=== PATIENT | male | born 1985 | race Caucasian/White ===

== ENCOUNTER 2023-09-07 12:12 | Emergency (ER) | payer OTHER, SELFPAY ==
--- NOTE | ~2023-09-07 | XR_ITS ---
EXAMINATION: XR chest 1V CLINICAL INFORMATION: Reason for Exam cp COMPARISON: None TECHNIQUE: Single portable frontal view. Tubes and lines: None Lungs and pleura: Small very radiodense structure projecting over the left upper lobe probably calcified granuloma, calcified pleural plaque or artifact. Lungs otherwise are clear. Heart and mediastinum: The mediastinum is within normal limits.. Bones/soft tissue: Skeletal structures included are normal for patient's age. XR/XR chest 1V IMPRESSION: 1. No radiographic evidence of acute cardiopulmonary disease. 2. Small 4 mm very dense structure projecting over the left upper lobe probably calcified granuloma, calcified pleural plaque or artifact.
--- NOTE | 2023-09-07 12:18 | ECG_ITS ---
Test Reason : CP Blood Pressure : / mmHG Vent. Rate : 097 BPM Atrial Rate : 097 BPM P-R Int : 150 ms QRS Dur : 068 ms QT Int : 392 ms P-R-T Axes : 069 023 008 degrees QTc Int : 497 ms Artifact in tracing Normal sinus rhythm due to artifact, cannot interpret further No previous ECGs available Referred By: Generic ED Physician Electronically Signed By:JD SON
[2023-09-07 12:25] VITALS: BP 107/68; PULSE 90; RESP 18; TEMP 36.6; O2SAT 97; BMI 25.0
--- NOTE | 2023-09-07 12:30 | ECG_ITS ---
Test Reason : CP Blood Pressure : / mmHG Vent. Rate : 101 BPM Atrial Rate : 101 BPM P-R Int : 140 ms QRS Dur : 076 ms QT Int : 346 ms P-R-T Axes : 063 027 037 degrees QTc Int : 448 ms Sinus tachycardia Otherwise normal ECG When compared with ECG of 07-SEP-2023 12:19, No significant changes seen Referred By: Richardson Munson Electronically Signed By:JD SON
--- NOTE | 2023-09-07 12:38 | ED.CHESTPAIN ---
HPI - Chest Pain General Chief Complaint: Chest Pain Stated Complaint: CHEST PAIN FROM [facility] PER EMS Time Seen by Provider: 09/07/23 12:28 Source: patient Mode of arrival: ambulatory Limitations: no limitations History of Present Illness HPI narrative: 38-year-old male came in for evaluation of chest pain that started since yesterday pain is unaware of becoming more constant since this morning, pain is associated with nausea but no vomiting, pain is 5/10 gets worse with movement or taking a deep breath nothing is alleviating the pain. Liver had similar pain in the past, no recent travel, no recent prolonged immobilization, no lower extremity swelling, no family history of PE or DVT, patient has no history of hypertension, no diabetes, no HDL. Patient was transported from inpatient psych facility for evaluation of chest pain patient is under constant one-to-one sitter for risk of SI and harming himself. No coughing, no chest injury or trauma, no fever, no chills. Related Data Allergies Allergy/AdvReac Type Severity Reaction Status Date / Time No Known Allergies Allergy Verified 09/07/23 12:28 Review of Systems Review of Systems: All other systems are reviewed and are negative Constitutional: Reports as per HPI and Reports no additional constitutional complaints Eyes: Reports as per HPI and Reports no additional eye complaints Reports system reviewed and no additional complaints, except as documented Cardiovascular: Reports as per HPI and Reports no additional cardiovascular complaints Respiratory: Reports as per HPI and Reports no additional respiratory complaints Gastrointestinal: Reports as per HPI and Reports no additional gastrointestinal complaints Genitourinary: Reports no additional female genitourinary complaints Musculoskeletal: Reports no additional musculoskeletal complaints Skin/Breast: Reports system reviewed and no additional complaints, except as docu Psychiatric: Reports no additional psychiatric complaints Endocrine: Reports no additional endocrine complaints Hematologic/Lymphatic: Reports no additional hematologic/lymphatic complaints Allergic/Immunologic: Reports no additional allergic/immunologic complaints Reports system reviewed and no additional complaints, except as documented and Reports Abnormal speech present [facility] Social History Social History Alcohol intake: never Smoked in Last 30 Days: No Use of substances other than those prescribed or required for medical reasons: No Advance Directives: No Physical Exam Vital Signs: Vital Signs: Last Vital Signs Temp 98.0 F 09/07/23 15:17 Pulse 95 09/07/23 15:17 Resp 16 09/07/23 15:17 BP 119/82 09/07/23 15:17 Pulse Ox 99 09/07/23 15:17 O2 Del Method Room Air 09/07/23 15:17 BMI result Body Mass Index 25.0 Vital signs have been reviewed and appear to be correct. Blood pressure elevated. Heart rate normal. Respiratory rate normal. Temperature normal. Oxygen saturation normal. Appearance: Alert. Oriented X3. No acute distress. Head: Normal external exam. Normocephalic. Atraumatic. No Teixeira signs noted. No raccoon eyes noted Eyes: PERRLA. EOMI. Conjunctiva and sclera normal. Eyelids normal. ENT: TM's Normal. Pharynx normal. Uvula midline. Moist mucous membranes. No trismus noted. No drooling noted. No muffled voice noted. Neck: Normal inspection. Neck supple. FROM. No adenopathy. Thyroid Normal. No meningeal signs. No neck mass noted. CVS: Normal heart rate and rhythm. Heart sound normal. No murmurs noted. Pulses normal throughout. Respiratory: No respiratory distress. Painless inspiration. Breath sounds normal. No wheezes/rales/rhonchi noted. Point of tenderness over the sternum, No accessory muscle usage noted or decreased air movement noted. Abdomen: Soft and nontender. Bowel sounds normal in all 4 quadrants. No distention noted. No organomegaly noted. No visible injury noted. Back: No CVA tenderness. Full range of motion noted. Skin: Skin warm and dry. Normal skin color. Normal skin turgor. No rashes/lesions/lacerations noted. Extremities: No lower extremity edema. Extremities exhibit normal range of motion. Extremities nontender. Neuro: Oriented X 3. Cranial nerve exam: II-XII are grossly intact No motor deficit. No sensory deficit. Reflexes normal. Course Reevaluation(s) Reevaluation #1: Patient feels better after was given Maalox and Pepcid, with better appetite able to tolerate p.o. intake in the emergency department with no nausea or vomiting. Chest pain which is noncardiac started since yesterday with 2- troponin in the ED, patient at low risk for pulmonary embolism and negative D-dimer, otherwise has stable vital signs, unremarkable labs, UA revealed small leuko Estrace with 6-10 WBCs but patient declined any UTI symptoms patient was advised to drink plenty of fluids. Time: 15:45 Medications Administered Discontinued Medications Generic Name Dose Route Start Last Admin Trade Name Freq PRN Reason Stop Dose Admin Al Hydroxide/Mg Hydroxide 30 ml 09/07/23 12:36 09/07/23 12:49 Magnesium Hydrox/Alum Hydrox 30 Ml Oral.Susp PO 09/07/23 12:37 30 ml ONCE ONE Administration Famotidine 20 mg 09/07/23 12:36 09/07/23 12:50 Famotidine/Pf 20 Mg/2 Ml Vial IVPUSH 09/07/23 12:37 20 mg ONCE ONE Administration Ketorolac Tromethamine 30 mg 09/07/23 13:39 09/07/23 14:01 Ketorolac Tromethamine 30 Mg/Ml Vial IVPUSH 09/07/23 13:40 30 mg ONCE ONE Administration Ondansetron HCl 4 mg 09/07/23 12:36 09/07/23 12:50 Ondansetron Hcl 4 Mg/2 Ml Vial IVPUSH 09/07/23 12:37 4 mg ONCE ONE Administration Medical Decision Making Differential Diagnosis Differential Diagnoses: The differential diagnosis associated with the presentation includes (ACS, PE, pleural effusion, pneumothorax, gastritis, gallbladder disease, pancreatitis, electrolyte derangement, severe anemia.) Admission/Observation Consideration of admission/observation: Escalation of care including admission/observation considered Lab Data MDM Lab Attestation statement: I reviewed the patient's lab results. 09/07/23 12:45 09/07/23 12:45 Labs: Lab Results 09/07/23 09/07/23 Range/Units 12:45 13:57 WBC 9.5 (4.8-10.8) X10*3/uL RBC 5.80 (4.60-5.80) X10*6/uL Hgb 16.8 (14.0-18.0) g/dl Hct 48.5 (42.0-52.0) % MCV 83.6 (80.0-98.0) fL MCH 29.0 (27.0-33.0) pg MCHC 34.6 (31.0-36.0) g/dl RDW 12.6 (11.0-16.0) % Plt Count 187 (160-400) X10*3/uL MPV 9.5 (9.4-12.4) fL Immature Gran % (Auto) 0.2 (0.0-0.4) % Neut % (Auto) 73.5 H (45-73) % Lymph % (Auto) 18.8 L (20-40) % Nobles % (Auto) 5.3 (2-11) % Eos % (Auto) 1.9 (0-4) % Baso % (Auto) 0.3 (0-2) % Lymph # (Auto) 1.8 (1.2-4.9) X10*3/uL [place]les # (Auto) 0.5 (0.1-1.2) X10*3/uL Eos # (Auto) 0.2 (0.0-0.4) X10*3/uL Baso # (Auto) 0.0 (0.0-0.2) X10*3/uL Abs Immat Gran (auto) 0.02 (0.00-0.03) X10*3/uL Absolute Neuts (auto) 7.0 (2.0-8.3) x10*3/uL Absolute Nucleated RBC 0.000 (0.0-0.012) X10*3/uL Nucleated RBC % (auto) 0.0 (0.0-0.2) /100WBC D-Dimer High Sensitivty < 150 NG/ML Sodium 144 (135-145) mmol/L Potassium 3.8 (3.3-5.1) mmol/L Chloride 110 H (96-108) mmol/L Carbon Dioxide 26 (22-29) mmol/L Anion Gap 12 (12-20) BUN 23 H (9-16) mg/dL Creatinine 1.02 (0.5-1.4) mg/dL Estim Creat Clear Calc 108.8 Estimated GFR > 60 Random Glucose 99 (60-115) mg/dL Calcium 9.9 (8.4-10.2) mg/dL Total Bilirubin 0.5 (0.0-1.0) mg/dL Direct Bilirubin 0.1 (0.0-0.5) mg/dL AST 22 (5-37) U/L ALT 26 (0-40) U/L Alkaline Phosphatase 64 (39-117) U/L Troponin I High Sens < 2.7 (<3.5-35.0) ng/L B-Natriuretic Peptide < 10 (<100) pg/mL Total Protein 7.8 (6.5-8.0) g/dL Albumin 4.7 (3.5-5.0) g/dL Lipase 51 (8-78) U/L Urine Color Yellow Urine Appearance Clear Urine pH 5.5 (5.0-9.0) Ur Specific [place] >= 1.030 H (1.005-1.025) Urine Protein Negative (Neg-Trace) mg/dL Urine Glucose (UA) Negative (Negative) mg/dL Urine Ketones Trace (Negative) mg/dL Urine Blood Negative (Negative) Urine Nitrite Negative (Negative) Ur Leukocyte Esterase Small (1+) H (Negative) Urine RBC 0-2 (0-2) /HPF Urine WBC 6-10 H (0-5) /HPF Ur Squamous Epith Cells 0-2 (0-2) /HPF Urine Bacteria None Seen (None Seen) Hyaline Casts 0-2 (0-2) /LPF Influenza Type A (PCR) NEGATIVE (Negative) Influenza Type B (PCR) NEGATIVE (Negative) RSV RNA Qual (PCR) NEGATIVE (Negative) SARS-CoV-2 RNA (RT-PCR) NEGATIVE (Negative) Independent Interpretation I performed an independent interpretation of an: EKG (Normal sinus rhythm at 100 beats per minutes, normal intervals, normal axis deviation, no ST-T changes.) and Plain X-Ray (Chest: . No radiographic evidence of acute cardiopulmonary disease. 2. Small 4 mm very dense structure projecting over the left upper lobe probably calcified granuloma, calcified pleural plaque or artifact. ) Radiology Impression Discussion of test interpretation with radiology: I have reviewed the radiologist's reading. Discharge Plan Discharge Clinical Impression: Atypical chest pain Patient Disposition: Home, Self-Care Instructions: Chest Pain (ED) Print Language: Armenian
[2023-09-07] MEDS: Magnesium Hydrox/Alum Hydrox 30 ML ORAL.SUSP PO (12:49)
[2023-09-07 12:50] LABS: MANUAL DIFF FLAG NO
[2023-09-07] MEDS: Famotidine/PF 20 MG/2 ML VIAL IVPUSH (12:50)
[2023-09-07] MEDS: ondansetron HCL 4 MG/2 ML VIAL IVPUSH (12:50)
[2023-09-07 12:55] VITALS: BP 124/90; PULSE 99; TEMP 36.6
[2023-09-07 12:58] LABS: Basophils Percent Auto 0.3 % (0-2); Eosinophils Absolute Auto 0.2 X10*3/uL (0.0-0.4); Eosinophils Percent Auto 1.9 % (0-4); Hematocrit 48.5 % (42.0-52.0); Hemoglobin 16.8 g/dl (14.0-18.0); Imm Gran Abs Auto 0.02 X10*3/uL (0.00-0.03); Imm Gran Pct Auto 0.2 % (0.0-0.4); Lymphocytes Absolute Auto 1.8 X10*3/uL (1.2-4.9); Lymphocytes Percent Auto 18.8 % (20-40); Mean Corpuscular HGB Conc 34.6 g/dl (31.0-36.0); Mean Corpuscular Volume 83.6 fL (80.0-98.0); Mean Platelet Volume 9.5 fL (9.4-12.4); Monocytes Absolute Auto 0.5 X10*3/uL (0.1-1.2); Monocytes Percent Auto 5.3 % (2-11); Neutrophils Percent Auto 73.5 % (45-73); Platelet Count 187 X10*3/uL (160-400); Red Cell Distribution Width 12.6 % (11.0-16.0); White Blood Count 9.5 X10*3/uL (4.8-10.8)
[2023-09-07 13:14] LABS: Alanine Aminotransferase 26 U/L (0-40); Albumin Level 4.7 g/dL (3.5-5.0); Alkaline Phosphatase 64 U/L (39-117); Anion Gap 12 (12-20); Aspartate Amino Transferase 22 U/L (5-37); Bilirubin Direct 0.1 mg/dL (0.0-0.5); Bilirubin Total 0.5 mg/dL (0.0-1.0); Blood Urea Nitrogen 23 mg/dL (9-16); Calcium 9.9 mg/dL (8.4-10.2); Carbon Dioxide 26 mmol/L (22-29); Chloride 110 mmol/L (96-108); Creatinine Clr Calc Pharmacy 108.8; Estimated Glomerular Filt Rate > 60; Glucose Random 99 mg/dL (60-115); Lipase 51 U/L (8-78); Potassium 3.8 mmol/L (3.3-5.1); Sodium 144 mmol/L (135-145); Total Protein 7.8 g/dL (6.5-8.0)
[2023-09-07 13:15] LABS: D Dimer High Sensitivity < 150 NG/ML
[2023-09-07 13:20] LABS: B Type Natriuretic Peptide < 10 pg/mL (<100)
[2023-09-07 13:26] LABS: Troponin-I High Sensitivity < 2.7 ng/L (<3.5-35.0)
[2023-09-07 13:40] LABS: Influenza A PCR NEGATIVE (Negative); Influenza B PCR NEGATIVE (Negative); Resp Syncy Virus RNA Qual PCR NEGATIVE (Negative); SARS COV2 PCR INHOUSE NEGATIVE (Negative)
[2023-09-07] MEDS: Ketorolac Tromethamine 30 MG/ML VIAL IVPUSH (14:01)
[2023-09-07 14:03] LABS: Appearance Urine Clear; Color Urine Yellow; Glucose Urine UA Negative (Negative); Leukocyte Esterase Urine Small (1+) (Negative); Nitrite Urine Negative (Negative); PH 5.5 (5.0-9.0); Specific Gravity - Urine >= 1.030 (1.005-1.025); UMIC TRIGGER UACC YES; Urine Blood Negative (Negative); Urine Ketones Trace mg/dL (Negative); Urine Protein Negative (Neg-Trace)
[2023-09-07 14:41] LABS: Bacteria Urine None Seen (None Seen); Hyaline Casts Urine 0-2 /LPF (0-2); RBC Urine 0-2 /HPF (0-2); Squamous Epithelial Cell Urine 0-2 /HPF (0-2); UACC Culture Trigger YES
[2023-09-07 15:17] VITALS: BP 119/82; PULSE 95; RESP 16; TEMP 36.7; O2SAT 99
--- NOTE | 2023-09-07 15:49 | MHC.EDTECH ---
THIS PCT ASSUMED CARE OF PATIENT AT 1500 ,VITALS TAKEN ,2ND TROP DRAWN AND SENT TO LAB ,PATIENT OBSERVER AT BEDSIDE .
[2023-09-07 16:05] LABS: Troponin-I High Sensitivity < 2.7 ng/L (<3.5-35.0)
--- NOTE | 2023-09-07 16:58 | PC.NURSE ---
Multiple attempts made to call report to [facility] , unable to reach nurse to give report
[2023-09-07 17:28] VITALS: BP 117/79; PULSE 95; RESP 16; TEMP 37; O2SAT 97
--- NOTE | 2023-09-07 17:34 | PC.NURSE ---
staff member from [facility] stating facility is aware of his return that she tested them , report given to EMS
[2023-09-07 17:35] VITALS: BP 117/79; PULSE 95; RESP 16; TEMP 37; O2SAT 97
== END 2023-09-07 17:34 | disposition home or self-care (01) ==
PROVIDERS: Emergency Provider Emergency Medicine
DX: R07.89 Other chest pain (principal); Z11.52 Encounter for screening for COVID-19; Z20.828 Contact with and (suspected) exposure to other viral communicable diseases
CPT/HCPCS: 0241U; 36415; 71045; 80048; 80076; 81001; 81003; 83690; 83880; 84484; 85025; 85379; 87086; 93005; 96374; 96375; 99284; 99285; J1885; J2405

== ENCOUNTER → 2023-09-07 12:18 | Outpatient (BNV) | payer OTHER, SELFPAY | PROVIDERS: Emergency Provider Emergency Medicine; Visit Provider Internal Medicine | DX: R07.9 Chest pain, unspecified (principal); R00.0 Tachycardia, unspecified | CPT/HCPCS: 93010 ==

== ENCOUNTER → 2024-04-22 10:45 | Outpatient (BNV) | payer OTHER, SELFPAY | PROVIDERS: Visit Provider Psychiatry & Neurology Psychiatry | DX: F34.1 Dysthymic disorder (principal); F41.8 Other specified anxiety disorders; F43.12 Post-traumatic stress disorder, chronic; F90.2 Attention-deficit hyperactivity disorder, combined type; F81.9 Developmental disorder of scholastic skills, unspecified | CPT/HCPCS: 90792 ==

== ENCOUNTER → 2024-04-27 09:05 | Outpatient (REF) | payer OTHER, SELFPAY ==
--- NOTE | 2024-04-27 | ECG_ITS ---
Test Reason : qtc check Blood Pressure : / mmHG Vent. Rate : 097 BPM Atrial Rate : 097 BPM P-R Int : 146 ms QRS Dur : 072 ms QT Int : 352 ms P-R-T Axes : 076 050 047 degrees QTc Int : 447 ms Normal sinus rhythm Normal ECG When compared with ECG of 07-SEP-2023 12:25, No significant change was found Referred By: Avis Guzmán Electronically Signed By:DEVORAH OKEEFE MD
[2024-04-27 09:37] LABS: MANUAL DIFF FLAG NO
[2024-04-27 09:40] LABS: Basophils Percent Auto 0.4 % (0-2); Eosinophils Absolute Auto 0.2 X10*3/uL (0.0-0.4); Eosinophils Percent Auto 2.6 % (0-4); Hematocrit 45.1 % (42.0-52.0); Hemoglobin 15.4 g/dl (14.0-18.0); Imm Gran Abs Auto 0.01 X10*3/uL (0.00-0.03); Imm Gran Pct Auto 0.1 % (0.0-0.4); Lymphocytes Absolute Auto 1.8 X10*3/uL (1.2-4.9); Lymphocytes Percent Auto 25.1 % (20-40); Mean Corpuscular HGB Conc 34.1 g/dl (31.0-36.0); Mean Corpuscular Volume 87.7 fL (80.0-98.0); Mean Platelet Volume 9.4 fL (9.4-12.4); Monocytes Absolute Auto 0.5 X10*3/uL (0.1-1.2); Monocytes Percent Auto 7.3 % (2-11); Neutrophils Absolute Auto 4.5 x10*3/uL (2.0-8.3); Neutrophils Percent Auto 64.5 % (45-73); Platelet Count 206 X10*3/uL (160-400); Red Blood Count 5.14 X10*6/uL (4.60-5.80); Red Cell Distribution Width 12.3 % (11.0-16.0)
[2024-04-27 09:48] LABS: Estimated Average Glucose 97 mg/dL; Hemoglobin A1C 120.8241 umol/L; Total Hemoglobin (HGBA1C) 3830.2311 umol/L
[2024-04-27 10:15] LABS: Parathyroid Hormone Intact 64.7 pg/mL (8.7-77.1)
[2024-04-27 10:18] LABS: Appearance Urine Clear; Color Urine Yellow; Glucose Urine UA Negative (Negative); Leukocyte Esterase Urine Negative (Negative); Nitrite Urine Negative (Negative); Specific Gravity - Urine 1.025 (1.005-1.025); Urine Blood Negative (Negative); Urine Ketones Trace mg/dL (Negative); Urine Protein Negative (Neg-Trace)
[2024-04-27 10:19] LABS: Alanine Aminotransferase 35 U/L (0-40); Albumin Level 4.3 g/dL (3.5-5.0); Alkaline Phosphatase 56 U/L (39-117); Anion Gap 10 (12-20); Aspartate Amino Transferase 29 U/L (5-37); Bilirubin Total 0.4 mg/dL (0.0-1.0); Blood Urea Nitrogen 20 mg/dL (9-16); Calcium 9.8 mg/dL (8.4-10.2); Carbon Dioxide 31 mmol/L (22-29); Chloride 106 mmol/L (96-108); Cholesterol 195 mg/dL (<200); Estimated Glomerular Filt Rate > 60; Glucose Fasting 104 mg/dL (60-99); HDL Cholesterol 25 mg/dL (>40); Iron 98 mcg/dL (45-160); LDL Cholesterol Calculated 132 mg/dL (<100); Percent Iron Saturation 31 % (15-50); Phosphorus 3.2 mg/dL (2.7-4.5); Potassium 3.9 mmol/L (3.3-5.1); Sodium 143 mmol/L (135-145); Total Iron Binding Capacity 316 mcg/dL (228-428); Total Protein 7.2 g/dL (6.5-8.0); Triglycerides 194 mg/dL (<150); Unsaturated Iron Binding 218 ug/dL
[2024-04-27 10:34] LABS: Free T4 (Free Thyroxine) 1.14 ng/dL (0.71-1.85); Vitamin D 25-OH Total 36.9 ng/mL (>30)
[2024-04-27 10:47] LABS: Folate 11.8 ng/mL (> or = 4.0); Vitamin B12 494 pg/mL (200-900)
[2024-04-28 17:04] LABS: Homocysteine 10.2 umol/L (<11.4)
--- OUTSIDE RECORDS SUMMARY | 2024-04-29 13:48 | XMS_ITS ---
Author Name [facility] Organization Unknown Results Test Name/Text Value Interpretation Date Range Source RBC DISTRIBUTION WIDTH 12.5% Normal [id number] 11.6 - 14.8 [facility] AUTO NRBC % 0% Normal [id number] 0 - [address] [facility] [address] 1110*3/uL Above high normal [id number] 1.4 - 6.[address] [facility] [address] 0.610*3/uL Normal [id number] 0.2 - 0.8 [facility] MCHC 33.6g/dL Normal [id number] 32 - 36 [facility] MCH 30.3pg Normal [id number] 26 - 34 [facility] IMMATURE GRANULOCYTE % 0.4% Normal [id number] 0 - 0.6 [facility] EOSINOPHIL % 1.3% Normal [id number] 0 - 6 [facility] [address] 010*3/uL Normal [id number] 0 - 0. 2 [facility] MCV 90.2fL Normal [id number] 80 - 100 [facility] PLATELET COUNT 66844*3/uL Normal [id number] 150 - 440 [facility] BASOPHILS % 0.3% Normal [id number] 0 - [address] [facility] [address] 1.710*3/uL Normal [id number] 0.7 - 4.[address] [facility] [address] 0.210*3/uL Normal [id number] 0 - 0.3 [facility] HEMATOCRIT 51.5% Normal [id number] 40 - 52 [facility] WHITE CELL COUNT 13.610*3/uL Above high normal [id number] 3.8 - 10.6 [facility] RED CELL COUNT 5.7110*6/???L Normal [id number] 4.4 - 5. 9 [facility] MONOCYTE % 4.3% Normal [id number] 4 - 12 [facility] NEUTROPHIL % 81.3% Above high normal [id number] 40 - 7 0 [facility] HEMOGLOBIN 17.3g/dL Normal [id number] 13 - 18 [facility] LYMPHOCYTE % 12.4% Below low normal 20 - 50 [facility] CREATININE 1.2mg/dL Normal 0.6 - 1.2 [facility] SODIUM 145mmol/L Above high normal 137 - 144 [facility] CHLORIDE 107mmol/L Normal [id number] 100 - 111 [facility] CALCIUM, TOTAL 9.9mg/dL Normal 8.4 - 10.2 [facility] AST (SGOT) 21U/L Normal 17 - 35 [facility] UREA NITROGEN 17mg/dL Normal 8 - 24 [facility] ALBUMIN, AUTOMATED 4.6g/dL Normal 3.8 - 5. 3 [facility] GLUCOSE 97mg/dL Normal 70 - 200 [facility] BICARBONATE 29mmol/L Normal 23 - 32 [facility] POTASSIUM 4.3mmol/L Normal 3.6 - 5.1 [facility] GLOMERULAR FILTRATION RATE ML/MIN/1.73 SQ M.PREDICTED 79mL/min/1.73m* 2 Normal 60 - [facility] ALT (SGPT) 29U/L Normal 8 - 39 [facility] PROTEIN TOTAL 7.3g/dL Normal 6.2 - 8.1 [facility] BILIRUBIN, TOTAL 0.4mg/dL Normal 0.1 - 1.2 [facility] ALKALINE PHOSPHATASE 69U/L Normal 39 - 1 13 [facility] ANION GAP 9mmol/L Normal 3 - 11 [facility] CANNABINOID Negative Normal [id number] - [facility] OPIATES, URINE Negative Normal - [facility] COCAINE METABOLITES URINE Negative Normal - [facility] BENZODIAZEPINE, URINE Negative Normal - [facility] THYROID STIM HORMONE 1.52uIU/mL Normal [id number] 0.35 - 4.94 [facility] SARS-COV-2 PCR (CEPHEID) Negative Normal [facility] History of Medication Use Medication Directions Dispensed Refills Start Date End Date Stat amphetamine-dextroam phetamine (ADDERALL) 5 MG tablet Take 5 mg by mouth daily. 03/28/2022 active amphetamine-dextroam phetamine (ADDERALL) 10 MG tablet Take 10 mg by mouth nightly. 03/28/2022 active sertraline (ZOLOFT) 100 MG tablet Take 100 mg by mouth daily. 2 tabs for 200mg 03/28/2022 active OMEprazole (PriLOSEC) 20 MG capsule Take 20 mg by mouth every morning before breakfast. 03/28/2022 active amphetamine-dextroam phetamine (ADDERALL XR) 30 MG 24 hr capsule Take 30 mg by mouth every morning. 03/28/2022 active
--- OUTSIDE RECORDS SUMMARY | 2024-04-29 13:48 | XMS_ITS | Clinical Summary ---
Author Organization Unknown Care Team Providers Care Police Shift Commander Name Role Phone MYLA BAKER, JANNA Unavailable Unavailable HARRIS SOTO, LEE Unavailable Unavailable Payers Payer Name Policy Type Policy Number Effective Date Expira tion Date [employer] [place] [id number] [place] [id number] Problems Condition Name Condition Details Condition Category Status Onset Date Resolution Date Last Treatment Date Treating Clinician Comments MAJOR DEPRESSIVE DISORDER, RECURRENT, UNSPECIFIED Active 2023-05 00:00: 00 GENERALIZED ANXIETY DISORDER Active 2023-05 00:00: 00 ATTN-DEFCT HYPERACTIVIT Y DISORDER, PREDOM INATTENTIVE TYPE Active 2023-05 00:00: 00 ALCOHOL DEPENDENCE, IN REMISSION Active 2023-05 00:00: 00 Allergies, Adverse Reactions, Alerts Allergy Name Allergy Type Status Severity Reaction(s) Onset Date Inactive Date Treating Clinician Comments NKA Propensity to adverse reactions Active 2024-03 17:46:2 0 Medications Ordered Medication Name Filled Medication Name Start Date Stop Date Current Medication? Ordering Clinician Indication Dosage Frequency Signature (SIG) Comments Components Adderall XR 30 mg capsule,ext ended release 2023-05 00:00: 00 Yes [id number] 30 capsule DAILY 30 capsule DAILY (route: oral) Med Classific ation: Central Nervous System Agents dextroamphe tamine-amph etamine 5 mg tablet 2023-05 00:00: 00 04-12 23:59 :00 No [id number] 5 mg DAILY 5 mg DAILY (route: oral) Med Classific ation: Central Nervous System Agents hydroxyzine pamoate 50 mg capsule 2023-05 00:00: 00 04-12 23:59 :00 No [id number] 50 capsule NEEDED 50 capsule NEEDED (route: oral) Med Classific ation: Central Nervous System Agents omeprazole 20 mg capsule,del ayed release 2023-05 00:00: 00 Yes [id number] 20 capsule DAILY 20 capsule DAILY (route: oral) Med Classific ation: Gastroint estinal Therapy Agents trazodone 50 mg tablet 2023-05 00:00: 00 04-12 23:59 :00 No [id number] INSOMNIA 50 tablet NEEDED 50 tablet NEEDED (route: oral) Med Classific ation: Central Nervous System Agents venlafaxine 37.5 mg tablet 2023-05 00:00: 00 04-12 23:59 :00 No [id number] 37.5 mg DAILY 37.5 mg DAILY (route: oral) Med Classific ation: Central Nervous System Agents venlafaxine 75 mg tablet 2023-05 00:00: 00 04-12 23:59 :00 No [id number] 75 mg DAILY 75 mg DAILY (route: oral) Med Classific ation: Central Nervous System Agents terbinafine HCl 250 mg tablet 2023-05 00:00: 00 Yes [id number] 1 tablet DAILY 1 tablet DAILY (route: oral) Med Classific ation: Anti-Infe ctive Agents dextroamphe tamine-amph etamine 10 mg tablet 2023-05 00:00: 00 Yes [id number] 1 tablet DAILY 1 tablet DAILY (route: oral) Med Classific ation: Central Nervous System Agents hydroxyzine pamoate 25 mg capsule 2023-05 00:00: 00 Yes [id number] 1 capsule 3 TIMES DAILY 1 capsule 3 TIMES DAILY (route: oral) Med Classific ation: Central Nervous System Agents melatonin 1 mg tablet 2023-05 00:00: 00 04-22 23:59 :00 No [id number] 2 tablet BEDTIME 2 tablet BEDTIME (route: oral) Med Classific ation: Central Nervous System Agents trazodone 50 mg tablet 2023-05 00:00: 00 04-24 23:59 :00 No [id number] 1 tablet BEDTIME 1 tablet BEDTIME (route: oral) Med Classific ation: Central Nervous System Agents venlafaxine ER 150 mg capsule,ext ended release 24 hr 2023-05 00:00: 00 Yes [id number] 1 capsule DAILY 1 capsule DAILY (route: oral) Med Classific ation: Central Nervous System Agents guanfacine 1 mg tablet 2023-05 00:00: 00 Yes [id number] 1 mg EVERY PM 1 mg EVER Y PM (route: oral) Med Classific ation: Cardiovas cular Therapy Agents Meladox 3 mg tablet,exte nded release 2023-05 00:00: 00 Yes [id number] 3 mg BEDTIME 3 mg BEDTIME (route: oral) Med Classific ation: Central Nervous System Agents trazodone 100 mg tablet 2023-05 00:00: 00 Yes [id number] 100 mg BEDTIME 100 mg BEDTIME (route: oral) Med Classific ation: Central Nervous System Agents Vital Signs Vital Name Observation Time Observation Value Commen ts Temperature 2024-04-12 11:36:00.000 98.1 [degF] BMI (%) 2024-04-12 11:36:00.000 21 kg/m2 Height 2024-04-12 11:36:00.000 75 [in_us] Pulse 2024-04-12 11:36:00.000 99 /min Respirations 2024-04-12 11:36:00.000 18 /min Respirations 2024-04-02 17:43:00.000 18 /min Weight (lbs) 2024-04-12 11:36:00.000 175 [lb_av] Weight (lbs) 2024-04-01 14:46:11.000 180 [lb_av] Systolic Blood Pressure 2024-04-17 14:15:00.000 124 mm [Hg] Systolic Blood Pressure 2024-04-12 11:36:00.000 118 mm [Hg] Systolic Blood Pressure 2024-04-02 17:43:00.000 136 mm [Hg] Diastolic Blood Pressure 2024-04-17 14:15:00.000 74 mm [Hg] Diastolic Blood Pressure 2024-04-12 11:36:00.000 84 mm [Hg] Diastolic Blood Pressure 2024-04-02 17:43:00.000 102 m m[Hg] Plan of Treatment Planned Activity Planned Date Details Comments Future Scheduled Test SKILLED NU RSE TO EVALUATE PATIENT, IDENTIFY PRIMARY AND CO-MORBID CONDITIONS CODED PER CODING GUIDELINES, AND DEVELOP PATIENT SPECIFIC PLAN OF CARE THAT INCLUDES PATIENT GOAL FOR HOME HEALTH. [code = SKILLED NURSE TO EVALUATE PATIENT, IDENTIFY PRIMARY AND CO-MORBID CONDITIONS CODED PER CODING GUIDELINES, AND DEVELOP PATIENT SPECIFIC PLAN OF CARE THAT INCLUDES PATIENT GOAL FOR HOME HEALTH.] Future Scheduled Test SKILLED NU RSE TO PRE-POUR MEDICATION PER MEDICATION LIST WEEKLY. [code = SKILLED NURSE TO PRE-POUR MEDICATION PER MEDICATION LIST WEEKLY. ] Future Scheduled Test PATIENT MA Y HAVE ONE SET OF EMERGENCY MEDICATION NOT TO BE PRE-POURED ANY SOONER THAN 24 HOURS BEFORE SEVERE INCLEMENT WEATHER OR EMERGENT EVENT AND FOLLOWING SKILLED NURSE EVALUATION OF PATIENT SAFETY. [code = PATIENT MAY HAVE ONE SET OF EMERGENCY MEDICATION NOT TO BE PRE-POURED ANY SOONER THAN 24 HOURS BEFORE SEVERE INCLEMENT WEATHER OR EMERGENT EVENT AND FOLLOWING SKILLED NURSE EVALUATION OF PATIENT SAFETY.] Future Scheduled Test SKILLED NU RSE TO O/A OF PATIENTS MENTAL/BEHAVIORAL STATUS, ASSESS VITAL SIGNS WEEKLY. ALLOW 2 PRNS FOR MEDICATION MANAGEMENT. [code = SKILLED NURSE TO O/A OF PATIENTS MENTAL/BEHAVIORAL STATUS, ASSESS VITAL SIGNS WEEKLY. ALLOW 2 PRNS FOR MEDICATION MANAGEMENT.] Future Scheduled Test SKILLED NU RSE FOR O/A OF PATIENT'S RISK FOR VIOLENCE TOWARD SELF AND TO PROVIDE INTERVENTION TECHNIQUES TO PROMOTE SAFETY TO PATIENT AND OTHERS [code = SKILLED NURSE FOR O/A OF PATIENT'S RISK FOR VIOLENCE TOWARD SELF AND TO PROVIDE INTERVENTION TECHNIQUES TO PROMOTE SAFETY TO PATIENT AND OTHERS] Future Scheduled Test SKILLED NU RSE MAY PICKUP AND TRANSPORT MEDICATIONS [code = SKILLED NURSE MAY PICKUP AND TRANSPORT MEDICATIONS] Future Scheduled Test MEDICATION S WILL BE HELD AND STORED IN LOCKBOX [code = MEDICATIONS WILL BE HELD AND STORED IN LOCKBOX] Future Scheduled Test SKILLED NU RSE FOR O/A OF GENERAL HEALTH STATUS OF PAIN, CARDIAC, RESPIRATORY, GASTROINTESTINAL, GENITOURINARY, SKIN, NEUROLOGIC, ENDOCRINE SYSTEMS TO IDENTIFY CHANGES ASSOCIATED WITH EXACERBATION FOR EARLY INTERVENTION OF COMPLICATIONS WEEKLY. [code = SKILLED NURSE FOR O/A OF GENERAL HEALTH STATUS OF PAIN, CARDIAC, RESPIRATORY, GASTROINTESTINAL, GENITOURINARY, SKIN, NEUROLOGIC, ENDOCRINE SYSTEMS TO IDENTIFY CHANGES ASSOCIATED WITH EXACERBATION FOR EARLY INTERVENTION OF COMPLICATIONS WEEKLY.] Future Scheduled Test SKILLED NU RSE FOR O/A AND SKILLED TEACHING OF COPING SKILLS TO MANAGE ANXIETY AND MAINTAIN SAFETY. [code = SKILLED NURSE FOR O/A AND SKILLED TEACHING OF COPING SKILLS TO MANAGE ANXIETY AND MAINTAIN SAFETY.] Future Scheduled Test SKILLED NU RSE FOR O/A AND SKILLED TEACHING RELATED TO MANAGEMENT OF DEPRESSIVE SYMPTOMS AND/OR DEPRESSION. SN TO REPORT SIGNIFICANT CHANGE IN DEPRESSIVE SYMPTOMS TO CLINICAL PROVIDER FOR EARLY INTERVENTION. [code = SKILLED NURSE FOR O/A AND SKILLED TEACHING RELATED TO MANAGEMENT OF DEPRESSIVE SYMPTOMS AND/OR DEPRESSION. SN TO REPORT SIGNIFICANT CHANGE IN DEPRESSIVE SYMPTOMS TO CLINICAL PROVIDER FOR EARLY INTERVENTION.] Future Scheduled Test SKILLED NU RSE TO REVIEW PATIENT MEDICATIONS. INSTRUCT PATIENT/CAREGIVER ON MONITORING OF EFFECTIVENESS, ADVERSE DRUG REACTIONS, SIDE EFFECTS OF ALL MEDICATIONS (PRESCRIPTION/-OTC), AND HOW AND WHEN TO REPORT PROBLEMS. [code = SKILLED NURSE TO REVIEW PATIENT MEDICATIONS. INSTRUCT PATIENT/CAREGIVER ON MONITORING OF EFFECTIVENESS, ADVERSE DRUG REACTIONS, SIDE EFFECTS OF ALL MEDICATIONS (PRESCRIPTION/-OTC), AND HOW AND WHEN TO REPORT PROBLEMS. ] Future Scheduled Test SKILLED NU RSE WILL MAINTAIN SITUATIONAL AWARENESS FOR SAFETY AND WILL NOTIFY CLINICAL PER DIEM PHYSICAL THERAPIST AND PHYSICIAN/PROVIDER WITH ANY CHANGE IN CONDITION. [code = SKILLED NURSE WILL MAINTAIN SITUATIONAL AWARENESS FOR SAFETY AND WILL NOTIFY CLINICAL PER DIEM PHYSICAL THERAPIST AND PHYSICIAN/PROVIDER WITH ANY CHANGE IN CONDITION.] Goal Patient Goal - G ET ON DISABILITY AND A PLACE TO LIVE Goal Provider Goal - A PLAN OF CARE WILL BE ESTABLISHED THAT MEETS PATIENT'S LONGTERM NEEDS AND INCLUDES PATIENT GOAL FOR HOME HEALTH. Goal Provider Goal - PATIENT WILL COMPLY WITH MEDICATION WHEN SKILLED NURSE PRE-POURS MEDICATION THROUGHOUT CERTIFICATION PERIOD. Goal Provider Goal - MEDICATION WILL BE AVAILABLE DURING INCLEMENT WEATHER OR EMERGENT EVENT THROUGHOUT CERTIFICATION PERIOD. Goal Provider Goal - ALTERED MENTAL/BEHAVIORAL STATUS WILL BE IDENTIFIED PROMPTLY AND INTERVENTION INITIATED QUICKLY TO MINIMIZE ASSOCIATED RISKS THROUGHOUT CERTIFICATION PERIOD. Goal Provider Goal - PATIENT WILL REMAIN SAFE IN COMMUNITY WITHOUT EVIDENCE OF INJURY/HARM TO SELF OR OTHERS THROUGHOUT CERTIFICATION PERIOD. Goal Provider Goal - SKILLED NURSE PICKED UP AND TRANSPORTED MEDICATIONS FOR SAFETY. Goal Provider Goal - MEDICATION WILL BE STORED IN LOCKBOX FOR SAFETY. Goal Provider Goal - CHANGE IN GENERAL HEALTH STATUS WILL BE IDENTIFIED AND REPORTED TO PHYSICIAN FOR PROMPT INTERVENTION TO MINIMIZE ASSOCIATED RISKS THROUGHOUT CERTIFICATION PERIOD. Goal Provider Goal - PATIENT WILL BE ABLE TO PERFORM DAILY FUNCTIONS AND HAVE OPTIMAL IMPROVEMENT IN LEVEL OF ANXIETY THROUGHOUT CERTIFICATION PERIOD. Goal Provider Goal - PATIENT WILL REMAIN SAFE WITHOUT DECOMPENSATION IN DEPRESSIVE CONDITION, WHILE MAINTAINING OPTIMAL LEVEL OF MENTAL HEALTH AND WELL BEING THROUGHOUT CERTIFICATION PERIOD. Goal Provider Goal - PATIENT/CAREGIVER WILL VERBALIZE UNDERSTANDING OF EDUCATION PROVIDED ON MEDICATIONS BY THE END OF THE CERTIFICATION PERIOD. Goal Provider Goal - PATIENT WILL REMAIN SAFE IN THE COMMUNITY AND WILL BE FREE OF DANGER TO SELF AND OTHERS THROUGHOUT THE CERTIFICATION PERIOD. Progress Notes Progress Notes <paragraph>[Visit Date: 2023 by LEE IGLESIAS RN]:</paragraph><paragraph>ALERT AND ORIENTED X4. COMPLIANT WITH MEDICATIONS. ATTENDED PARTIAL PROGRAM TODAY. STATED HE WAS PROUD THAT HE SHARED WITH THE GROUP TODAY. JULIANNE ALSO REPORTS THAT TODAY WAS THE FIRST TIME IN A LONG TIME HE DID NOT WANT TO . JULIANNE ENCOURAGED TO PARTICIPATE IN PARTIAL PROGRAM. MEDICATIONS PRE-FILLED THRU NOON ON SATURDAY.</paragraph> <paragraph>[Visit Date: 2023 by LEE IGLESIAS RN]:</paragraph><paragraph>JULIANNE REPORTS SHARING TODAY AT PARTIAL. HE REPORTS THAT IT FELT GOOD. COMPLIANT WITH MEDICATIONS. DENIES PLAN TO HURT HIMSELF. REPORTS FEELING NOT HAPPY YET. HE FEELS LIKE THE PARTIAL PROGRAM WILL HELP HIM. MEDICATIONS FILLED THRU SATURDAY NOON.</paragraph> Encounters Start Date/Time End Date/Time Encounter Type Admission Type Attending [facility] Care Department Encounter ID Discharge Date Discharge Status Discharge Condition Discharge Reason Percent Goals Met 2024-04-01 00:00:00 2024-05-30 00:00:00 Outpatient NEW ADMISSION LEE IGLESIAS [facility] [id number] 45.45
[2024-04-30 19:00] LABS: Zinc 63 mcg/dL (60-130)
[2024-05-01 17:34] LABS: Testosterone, Total 554 ng/dL (250-1100)
== END ==
LOC: HO.CARD 09:05
PROVIDERS: PCP Physician Assistant Medical; Visit Provider Psychiatry & Neurology Psychiatry
DX: Z13.6 Encounter for screening for cardiovascular disorders (principal); Z13.1 Encounter for screening for diabetes mellitus; F33.2 Major depressive disorder, recurrent severe without psychotic features; F41.8 Other specified anxiety disorders; F63.89 Other impulse disorders
CPT/HCPCS: 36415; 80053; 80061; 81003; 82306; 82607; 82746; 83036; 83090; 83540; 83735; 83970; 84100; 84403; 84425; 84439; 84443; 84630; 85025; 93005

== ENCOUNTER → 2024-04-27 09:20 | Outpatient (BNV) | payer OTHER, SELFPAY | PROVIDERS: PCP Physician Assistant Medical; Visit Provider Internal Medicine Cardiovascular Disease | DX: I45.81 Long QT syndrome (principal) | CPT/HCPCS: 93010 ==

== ENCOUNTER 2024-05-12 08:15 | Outpatient (RCR) | payer OTHER, SELFPAY ==
[2024-04-21 16:08] VITALS: BP 118/78; PULSE 100; RESP 18; TEMP 37.1; BMI 24.5
--- NOTE | 2024-04-21 16:51 | PC.ADMIT ---
Clement is a 39 year old male who was referred to [facility] through [facility], he has a history of severe depression, anxiety, ADD, alcohol use disorder currently on remission and suicidal ideation. He had been hospitalized on [facility]TU due to increase depression and suicidal ideation after girlfriend broke up with him and pending homelessness. Upon approach Clement is calm, good eye contact, speech appears clear and concise. He reports he continues to struggle with depression and anxiety, rated his depression an 8/10 and anxiety a 10/10. When asked if he had any thoughts of wanting to kill or hurt self stated No. When asked if he had any thoughts of wanting to kill or hurt others stated No. He reports he his sleep has been poor It's interrupted I wake up every hour during the night, he reports his appetite has been poor. He reports he is currently living with his dad, reports having a good support system at home, he also reports his psychiatrist/therapist is very supportive and available when he needs him. He reports he likes to go for walks in nature and would like for his depression and anxiety to Lower he's hopeful this program might help him with that.
--- NOTE | 2024-04-22 15:35 | HO.PHP ---
Karson asked to speak with staff this morning. Around 9:30 am this telegraphic typewriter installer met with Karson, pt stated he was struggling with SI due to a vivid dream he had last night were he took his own life (in the dream). Pt stated the dream felt very real and was still consuming his mind. Pt was able to brainstorm some ways to distract his thoughts and reduce ruminating on the dream that was increasing his SI, stated he was open to sharing his current struggles with SI, in groups today for support, pt was also informed by staff that he would be meeting with [facility] doctor and pt agreed to inform her of his vivid dreams and SI. Karson also asked if he can stand while in groups and step out if he struggled with staying focused, Karson was also provided with fidgets to help ground him and keep him from ruminating during group. Pt stated he was experiencing fleeting SI currently but denied a plan and denied intent. Pt stated he did not feel unsafe and strongly informed staff he did not need to go inpatient. Pt agreed he would check in with staff if his thoughts worsened while at [facility]. Pt open to learning more coping skills in groups today. Human Resources Operations Manager checked in with Karson again in the afternoon, pt stated he was still experiencing SI at times throughout the day but stated it was not more then usual and denied a plan and denied intent. Stated he was safe and would not be home alone, pt lives with his father who is a retired physician.
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
--- NOTE | 2024-04-23 13:46 | HO.PHP ---
Clement approached the [facility] staff member and stated that he will be going home. [facility] staff member explored with Clement why he would like to go home. Clement stated that he is not in a good head space right now for him to focus and keeps shutting down. [facility] staff member assessed for any safety concerns, in which Clement disclosed no safety concerns. [facility] staff member explored if Clement would be able to try to eat and go to the last group of the day to learn skills around how to cope with how he is feeling currently. Clement said he is unable to focus and asked again if he could go home. [facility] staff member was receptive and asked if he will be in attendance to program tomorrow. Clement mentioned he will be here tomorrow.
--- NOTE | 2024-04-23 16:18 | HO.PHP ---
Client's case has been opened and reviewed in team.
--- NOTE | 2024-04-30 16:46 | HO.PHP ---
[employer] reached out to [facility] to request an additional 5 days for Karson, a voicemail was left on 04/28/24. PHP was not contacted for 2 days so another voicemail was left today 04/30/24. A payroll representative Gabriela, called and requested clinicals be left on her voicemail and stated she will contact PHP when the information has been reviewed. A voicemail with updated clinicals was left on Gabriela's voicemail ext. [phone] at roughly 1:30 pm.
--- NOTE | 2024-05-01 20:00 | HO.PHPPROGNO ---
Subjective Subjective Date of Service: 05/01/24 Reason For Visit: MDD Interim History: Patient seen for follow-up. Still depressed, anhedonic, ruminative, feeling anxious most the time as well as feeling more keyed up, physically anxious, lower stress tolerance for couple of weeks. Anxiety perhaps a little better during the day since starting program, but unclear if this is guanfacine since overall he says he is not noticing much from the medication. Denies any adverse effects from the medication. Sleep is still difficult. He has issues with sweating at night and waking up feeling warm which are not new problems. I've always been sweating . Has been on trazodone and tried increasing dose from 50 to 100 mg last 2 nights without any improvement. Sleep has been an issue for much of the year, says he suddenly became a light sleep after last March . He can not recall which medications he was taking at the time. Reviewing [facility], it is noted that patient around that time was started on IR 10 mg Adderall in addition to Adderall XR 30 mg. Medication Compliance: Yes Side effects from medications: Yes (as noted above) Attending Groups: Yes Review of Systems Acute medical concerns: No Mental Status Exam Mental Status Exam Narrative: Alert, oriented, in no acute distress. Facial hair, bald/receded hair. Casual dressed. Calm, cooperative, engaged, pleasant. No psychomotor agitation or neurovegetative retardation. Eye contact maintained. Mood anxious, depressed, affect depressed, subdued with moments of brightening. No irritability, tearfulness or lability. Speech normal. Thought process a bit scattered but overall linear, coherent. Thought content related to stressors, dysthymia, impulsive behaviors, demoralization, low self esteem, helplessness, transient hopelessness with passive SI. Denies any intention, urge or plan. Identifies positive protective factors. Denies any anger/irritability, aggressive ideation or HI. Distrustful of family (spec mom, brother due to history) but otherwise no paranoia or delusional content elicited. No evidence of psychosis. Cognition grossly intact. Sensorium clear, attends well to conversation. No notable distractibility or impulsivity. Insight fair/good and judgment, fair but adequate. Diagnostics Vital Signs (24Hr): BMI result Body Mass Index 24.5 Assessment & Plan Assessment & Plan (1) Persistent depressive disorder: Status: Acute Code(s): F34.1 - Dysthymic disorder Assessment and Plan: chronic depression with acute exacerbation (2) Other specified anxiety disorders: Status: Acute Code(s): F41.8 - Other specified anxiety disorders Assessment and Plan: Social anxiety (3) Chronic post-traumatic stress disorder (PTSD): Status: Acute Code(s): F43.12 - Post-traumatic stress disorder, chronic (4) ADHD (attention deficit hyperactivity disorder), combined type: Status: Acute Code(s): F90.2 - Attention-deficit hyperactivity disorder, combined type Assessment and Plan: 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 marked by high impulsivity (presumably due to ADHD) but will explore whether meets criteria for separate impulse control disorder (eg porn addiction) will also consider whether medication may be contributing to impulsivity/overstimulation (5) Learning disability: Status: Acute Code(s): F81.9 - Developmental disorder of scholastic skills, unspecified Assessment and Plan: 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 - reading, writing, math - (is not sure of specific diagnoses) was on IEP/504 and 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 per complaints and reported history, patient might have struggled with an expressive language disorder (6) Zinc deficiency: Status: Acute Code(s): E60 - Dietary zinc deficiency Plan continue guanfacine ER 1 mg in AM (to target daytime anxiety, somatic sx related to stimulant rx, and as bed bug exterminator strategy for improving cognitive functioning/working memory) may consider titrating dose to 2 mg next week start ABilify 1-2 mg qhs continue venlafaxine 150 mg qd hold guanfacine ER 1 mg PM start clonidine 0.1 mg qhs hold Adderall XR 30 mg qam hold Adderall IR 15 mg qd start Vyvanse 40 mg qam discontinue trazodone 50 mg qhs change (from Vistaril 50 mg TID prn) to Vistaril 25 mg BID prn anxiety and 50-100 mg qhs prn sleep continue melatonin 3 mg qhs continue other medications: omeprazole 40 mg qd start zinc citrate 11 mg qd start vitamin D3 4000 IU qd Reviewed lab work: zinc level 63 (deficiency at <74 in men) preferably >80; vitamin D 36.9 (suboptimal) EKG reviewed VS: BP 118/78;?100 bpm (12/4), Continue to monitor Patient educated on: diagnosis and medication risk/benefits Informed Consent: understands Reason for contiued partial hosp. stay Substantial Risk for: inability to function and med/psych decompensation Certification I certify that partial hospital treatment is medically necessary due to the symptoms and problems resulting from the patient's mental illness and the failure to treat the patient at the partial hospital level of care would likely result in the patient requiring inpatient psychiatric care which could not be prevented at a less intensive level of care. Total time managing care of this patient today __30__ minutes. Discharge Plan Discharge Attending provider: Avis Guzmán Medications: New guanfacine 1 mg tablet extended release 24 hr 1 mg PO QPM Qty: 14 0RF Rx Instructions: at 7pm clonidine HCl 0.1 mg tablet 0.1 mg PO BEDTIME Qty: 14 0RF aripiprazole 2 mg tablet 2 mg PO BEDTIME Qty: 14 0RF hydroxyzine pamoate 25 mg capsule 25 mg PO BID PRN (Reason: anxiety) Qty: 30 0RF Rx Instructions: in AM and afternoon zinc citrate 11 mg tablet,chewable 11 mg PO DAILY Qty: 30 0RF cholecalciferol (vitamin D3) [Vitamin D3] 50 mcg (2,000 unit) capsule 100 mcg PO DAILY Qty: 60 0RF Continued dextroamphetamine-amphetamine 10 mg tablet 1.5 tab PO DAILY hydroxyzine pamoate 50 mg capsule 50 mg PO TID PRN (Reason: anxiety) omeprazole 40 mg capsule,delayed release(DR/EC) 40 mg PO DAILY dextroamphetamine-amphetamine [Adderall XR] 30 mg capsule,extended release 24hr 1 cap PO QAM trazodone 50 mg Tablet 50 mg PO BEDTIME melatonin 3 mg Tablet 3 mg PO BEDTIME venlafaxine 75 mg capsule,extended release 24hr 150 mg PO DAILY 15 Days Qty: 30 0RF lisdexamfetamine 20 mg capsule 20 mg PO QAM Qty: 20 0RF Rx Instructions: Partial Fill upon patient request. guanfacine 1 mg tablet extended release 24 hr 1 mg PO .DAILY in AM Qty: 30 0RF Print Language: Mauritian
--- NOTE | 2024-05-08 12:10 | P.PNPSP_ITS ---
Subjective Subjective Date of Service: 05/08/24 Reason For Visit: MDD Interim History: Patient seen for follow-up. Presents as anxious, and still depressed. No current SI but still having trouble with sleep, anxiety, mood. Has been tolerating ABilify and recent switch from Adderall XR to Vyvanse. He is currently taking 40 mg of Vyvanse which was better than 20 mg. He reports focus being at a 4/10 vs 0/10 off the medication. Still feels there is potential room for improvement with titrating dose. Has not been exacerbating anxiety thus far. Will plan to increase Vyvanse to 60 mg as well as increasing gunafacine ER to 2 mg and titrating Abilify from 2 to 3.5 mg qd to target mood, obsessive thoughts, anxiety, PTSD sx. We also discussed risk, benefit, potential adverse effects of clonazepam for short term soluation for sleep while waiting for medications to be more effecivte. Patient educated about risk for tolerance, addiction with BZD medication. Patient expresses understanding of risks and is agreeable to trial for sleep. No issues with substance abuse. Medication Compliance: Yes Side effects from medications: No Attending Groups: Yes Review of Systems Acute medical concerns: No Medical Review of Systems: unchanged Mental Status Exam Mental Status Exam Narrative: Alert, oriented, in no acute distress. Anxious but cooperative, less inhibited, more engaged, pleasant. No psychomotor agitation or neurovegetative retardation. Eye contact maintained. Mood anxious, depressed, affect depressed, subdued with moments of brightening. No irritability, tearfulness or lability. Speech normal. Thought process a bit scattered but overall linear, coherent. Thought content related to stressors, dysthymia, impulsive behaviors, demoralization, low self esteem, helplessness, denies any hopeless or thoughts of harming self or others. No mention of SI or HI. No evidence of psychosis. Insight fair/good and judgment, fair but adequate. Diagnostics Vital Signs (24Hr): BMI result Body Mass Index 24.5 Assessment & Plan Assessment & Plan (1) Persistent depressive disorder: Status: Acute Code(s): F34.1 - Dysthymic disorder Assessment and Plan: chronic depression with acute exacerbation (2) Other specified anxiety disorders: Status: Acute Code(s): F41.8 - Other specified anxiety disorders Assessment and Plan: Social anxiety (3) Chronic post-traumatic stress disorder (PTSD): Status: Acute Code(s): F43.12 - Post-traumatic stress disorder, chronic (4) ADHD (attention deficit hyperactivity disorder), combined type: Status: Acute Code(s): F90.2 - Attention-deficit hyperactivity disorder, combined type Assessment and Plan: ADD with hyperactivity dx in telephone sales representative presentation marked by high impulsivity (presumably due to ADHD) but will explore whether meets criteria for separate impulse control disorder (eg porn addiction) will also consider whether medication may be contributing to impulsivity/overstimulation (5) Learning disability: Status: Acute Code(s): F81.9 - Developmental disorder of scholastic skills, unspecified Assessment and Plan: 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, writing, math - (is not sure of specific diagnoses) was on IEP/504 and 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 per complaints and reported history, patient might have struggled with an expressive language disorder (6) Zinc deficiency: Status: Acute Code(s): E60 - Dietary zinc deficiency Plan increase to ABilify 3.5 mg qhs increase guanfacine ER to 2 mg qam increase Vyvanse to 60 mg qam continue venlafaxine 150 mg qd continue clonidine 0.1 mg qhs continue Vistaril 25 mg BID prn anxiety and 50-100 mg qhs prn sleep continue melatonin 3 mg qhs continue other medications: omeprazole 40 mg qd continue zinc citrate 11 mg qd continue vitamin D3 4000 IU qd Reviewed lab work: zinc level 63 (deficiency at <74 in men) preferably >80; v itamin D 36.9 (suboptimal) EKG reviewed VS: BP 118/78;?100 bpm (04/22), Continue to monitor Patient educated on: diagnosis and medication risk/benefits Informed Consent: understands Reason for contiued partial hosp. stay Substantial Risk for: inability to function and med/psych decompensation Certification I certify that partial hospital treatment is medically necessary due to the symptoms and problems resulting from the patient's mental illness and the failure to treat the patient at the partial hospital level of care would likely result in the patient requiring inpatient psychiatric care which could not be prevented at a less intensive level of care. Total time managing care of this patient today __30__ minutes. Discharge Plan Discharge Attending provider: Avis Guzmán Medications: New guanfacine 1 mg tablet extended release 24 hr 1 mg PO QPM Qty: 14 0RF Rx Instructions: at 7pm clonidine HCl 0.1 mg tablet 0.1 mg PO BEDTIME Qty: 14 0RF aripiprazole 2 mg tablet 2 mg PO BEDTIME Qty: 14 0RF hydroxyzine pamoate 25 mg capsule 25 mg PO BID PRN (Reason: anxiety) Qty: 30 0RF Rx Instructions: in AM and afternoon zinc citrate 11 mg tablet,chewable 11 mg PO DAILY Qty: 30 0RF cholecalciferol (vitamin D3) [Vitamin D3] 50 mcg (2,000 unit) capsule 100 mcg PO DAILY Qty: 60 0RF aripiprazole 5 mg tablet 5 mg PO BEDTIME Qty: 14 0RF clonazepam 1 mg tablet 0.5 - 1 mg PO BEDTIME PRN (Reason: sleep) Qty: 14 0RF Rx Instructions: administer 30 minutes before bedtime Continued dextroamphetamine-amphetamine 10 mg tablet 1.5 tab PO DAILY hydroxyzine pamoate 50 mg capsule 50 mg PO TID PRN (Reason: anxiety) omeprazole 40 mg capsule,delayed release(DR/EC) 40 mg PO DAILY dextroamphetamine-amphetamine [Adderall XR] 30 mg capsule,extended release 24hr 1 cap PO QAM trazodone 50 mg Tablet 50 mg PO BEDTIME melatonin 3 mg Tablet 3 mg PO BEDTIME venlafaxine 75 mg capsule,extended release 24hr 150 mg PO DAILY 15 Days Qty: 30 0RF lisdexamfetamine 20 mg capsule 20 mg PO QAM Qty: 20 0RF Rx Instructions: Partial Fill upon patient request. guanfacine 1 mg tablet extended release 24 hr 1 mg PO .DAILY in AM Qty: 30 0RF Stand Alone Forms: Patient Portal Discharge page Print Language: Macedonian
--- NOTE | 2024-05-11 13:32 | HO.PHPPROGNO ---
Subjective Subjective Date of Service: 05/11/24 Reason For Visit: MDD Diagnostics Vital Signs (24Hr): BMI result Body Mass Index 24.5 Assessment & Plan Certification I certify that partial hospital treatment is medically necessary due to the symptoms and problems resulting from the patient's mental illness and the failure to treat the patient at the partial hospital level of care would likely result in the patient requiring inpatient psychiatric care which could not be prevented at a less intensive level of care. Total time managing care of this patient today ____ minutes. Discharge Plan Discharge Attending provider: Avis Guzmán Medications: New clonidine HCl 0.1 mg tablet 0.1 mg PO BEDTIME Qty: 14 0RF aripiprazole 2 mg tablet 2 mg PO BEDTIME Qty: 14 0RF hydroxyzine pamoate 25 mg capsule 25 mg PO BID PRN (Reason: anxiety) Qty: 30 0RF Rx Instructions: in AM and afternoon zinc citrate 11 mg tablet,chewable 11 mg PO DAILY Qty: 30 0RF cholecalciferol (vitamin D3) [Vitamin D3] 50 mcg (2,000 unit) capsule 100 mcg PO DAILY Qty: 60 0RF aripiprazole 5 mg tablet 5 mg PO BEDTIME Qty: 14 0RF clonazepam 1 mg tablet 0.5 - 1 mg PO BEDTIME PRN (Reason: sleep) Qty: 14 0RF Rx Instructions: administer 30 minutes before bedtime guanfacine 2 mg tablet extended release 24 hr 2 mg PO DAILY Qty: 30 0RF venlafaxine 150 mg capsule,extended release 24hr 150 mg PO DAILY Qty: 30 0RF lisdexamfetamine 60 mg capsule 60 mg PO QAM Qty: 30 0RF Rx Instructions: Partial Fill upon patient request. Continued hydroxyzine pamoate 50 mg capsule 50 mg PO TID PRN (Reason: anxiety) omeprazole 40 mg capsule,delayed release(DR/EC) 40 mg PO DAILY melatonin 3 mg Tablet 3 mg PO BEDTIME Discontinued dextroamphetamine-amphetamine 10 mg tablet 1.5 tab PO DAILY dextroamphetamine-amphetamine [Adderall XR] 30 mg capsule,extended release 24hr 1 cap PO QAM venlafaxine 75 mg capsule,extended release 24hr 150 mg PO DAILY trazodone 50 mg Tablet 50 mg PO BEDTIME Stand Alone Forms: Patient Portal Discharge page Patient Education: ADHD in Adults (DC), Depression (DC), Generalized Anxiety Disorder (ED) Print Language: Panamanian
== END 2024-05-12 23:59 | disposition home or self-care (01) ==
LOC: HO.PHPA 08:15
PROVIDERS: Visit Provider Psychiatry & Neurology Psychiatry
DX: F34.1 Dysthymic disorder (principal); F41.8 Other specified anxiety disorders; F43.12 Post-traumatic stress disorder, chronic; F90.2 Attention-deficit hyperactivity disorder, combined type; F81.9 Developmental disorder of scholastic skills, unspecified; E60 Dietary zinc deficiency; Z79.899 Other long term (current) drug therapy
CPT/HCPCS: 90791; 90853